=== PATIENT | male | born 1955 | race Two or more races ===

== ENCOUNTER 2024-07-21 07:53 | Outpatient (RCR) | payer MEDICARE, BC, SELFPAY ==
[2024-07-06 16:18] LABS: Basophils % (Auto) 0 % (0-2.5); Eosinophils # (Auto) 0.2 Thou/mm3 (0.0-0.5); Eosinophils % (Auto) 3 % (0-10); Hematocrit 38.4 % (41.0-53.0); Hemoglobin 12.9 g/dL (13.5-16.0); Immature Granulocytes % (Auto) 1 % (0-0); Immature Granulocytes Auto 0.04 Thou/mm3 (0.00-0.00); Lymphocytes # (Auto) 1.5 Thou/mm3 (1.0-4.8); Lymphocytes % (Auto) 23 % (10-50); Mean Corpuscular HGB Conc 33.6 g/dl (31.0-37.0); Mean Corpuscular Hemoglobin 30.4 pg (25.0-35.0); Mean Corpuscular Volume 91 fL (80-100); Monocytes # (Auto) 0.7 Thou/mm3 (0.0-0.8); Monocytes % (Auto) 11 % (0-12); Neutrophils # (Auto) 4.2 Thou/mm3 (1.8-7.7); Neutrophils % (Auto) 63 % (37-80); Nucleated Red Blood Cell % 0 /100 WBC (0); Platelet Count 174 Thou/mm3 (140-440); RDW Standard Deviation 42.5 fL (35.1-43.9); Red Blood Count 4.24 Miln/mm3 (4.50-5.90); White Blood Count 6.7 Thou/mm3 (3.8-10.6)
[2024-07-06 16:40] LABS: Alanine Aminotransferase 14 U/L (10-49); Albumin, Serum 4.7 gm/dL (3.4-4.8); Albumin/Globulin Ratio 1.6 (1.2-2.2); Alkaline Phosphatase 122 U/L (46-116); Anion Gap 7 (7-16); Aspartate Amino Transferase 16 U/L (0-34); BUN/Creatinine Ratio 28 Ratio (12-20); Bilirubin,Total 0.4 mg/dL (0.3-1.2); Blood Urea Nitrogen 22 mg/dL (9-23); Calcium 9.6 mg/dL (8.3-10.6); Calcium (Corrected) 9.6 mg/dL (8.5-10.1); Carbon Dioxide 28.6 mMol/L (20.0-31.0); Chloride 100 mMol/L (98-107); Creatinine (Component) 0.8 mg/dL (0.6-1.3); Glucose 95 mg/dL (74-106); Osmolality,Calculated 275 (275-295); Potassium 4.1 mMol/L (3.4-5.1); Sodium 136 mMol/L (136-145); Total Protein 7.7 gm/dL (5.7-8.2); eGFR > 60 See Note
[2024-07-06 16:44] LABS: Carcinoembryonic Antigen 1.3 ng/mL (0.0-5.0)
--- NOTE | 2024-07-11 22:59 | CTCFLWUP_ITS ---
Patient: KRAIG MAYO : 1955 Page 7 of 8 FOLLOW UP NOTE DATE OF SERVICE: 07/07/2024 NAME: KRAIG MAYO ACCOUNT: [id number] : 1955 AGE: 69 INTERVAL HISTORY: Patient doing well ONCOLOGY HISTORY: DIAGNOSIS: Malignant neoplasm of transverse colon [ICD10] C18.4 DATE OF DIAGNOSIS: 07/16/2023 STAGE/TNM: Stage IV colon cancer with liver mets s/p colectomy and metastatic colectomy of the liver lesions TREATMENT HISTORY: Care?Plan Start?Date Cycle Day Intent mFOLFOX-6?+?Bevacizumab?5?mg/kg 09/07/2023 1 14 Palliative HISTORY OF PRESENT ILLNESS: Kraig Mayo is a 69-year-old ENG speaking male with history of hypertension has the following oncology history. 07/14/2023: Hemoglobin 6.6, MCV 65, WBC 11.6, ANC 9.0, platelets 522,000. Mr. Mayo was having re stless leg syndrome as well as weakness and fatigue. 07/16/2023: Mr. Mayo had EGD and colonoscopy? 07/16/2023: CT scan of the abdomen and pelvis with IV contrast 08/13/2023: PET/CT scan? 07/17/2023: Mr. Mayo had exploratory laparotomy, right colectomy and eventual liver biopsy 09/07/2023: Mr. Mayo is started on modified FOLFOX 6 and bevacizumab. 09/10/2023: MRI of the abdomen with and without IV contrast 12/15/2023: Mr. Mayo received a dose of modified FOLFOX 6+ bevacizumab. 12/19/2023: PET/CT scan 02/24/2024: Mr. Mayo had fL cycle of modified FOLFOX 6 with bevacizumab. 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 Tobacco?Pack?per?Day:?0 MEDICATIONS: 1. iron - 100 mg/5 mL 2. magnesium - 200 mg 1 tab Daily 3. pravastatin - 40 mg 1 tab Daily 4. pregabalin - 50 mg 1 Capsule Twice a Day 5. PriLOSEC OTC - 20 mg 1 tab po q daily for 6 days 6. ramipriL - 10 mg 1 Capsule Daily 7. zinc - 30 mg 1 tab Daily Medications Last Reconciled by Rena Amado MA on 07/07/2024 ALLERGIES: No Known Allergies REVIEW OF SYSTEMS: A complete 14-point review of systems was performed and is negative except as noted in interval histo ry. PHYSICAL EXAMINATION: VITAL SIGNS: Temperature?98.2, B/P?124/82, Oxygen?Saturation?97% Weight?145?lbs (Change?since?07/06/24 :?-2.8?lbs) PAIN: 3 - Between mild and moderate pain ECOG Performance Status: 0 - Asymptomatic and fully active GENERAL APPEARANCE: Appears well, in no apparent distress, appropriately interactive. HEENT: Normocephalic, no temporal wasting, normal conjunctiva, no scleral icterus, normal hearing, li ps without lesions, neck normal range of motion. CARDIOVASCULAR: Not assessed. PULMONARY: Normal respiratory effort, no respiratory distress or use of accessory muscles, speaking i n full sentences, no tachypnea. EXTREMITIES: No pedal edema or cyanosis. SKIN: Normal skin appearance. NEUROLOGIC: Alert and oriented x4. PSHYCHIATRIC: Appropriate affect, mood normal, behavior normal, intact thought and speech. 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 Mayo had 12 cycles of modified FOLFOX 6+ bevacizumab on 02/24/2024. He has an appointment for repeat MRI scan on March 15, [address] at [place] scan (12/19/2023) showed significant decrease in the size of the hepatic metastatic disease. So far patient had 6 doses of modified FOLFOX 6 and bevacizumab. His energy levels have significantl y improved. Patient completed for hepatic metastasectomy at [place].. Will check for residua disease Ordered scans Will evaluate for residual disease Patient very reluctant to restart chemotherapt ORDERS: Cbc,cmp,cea,naterra and scans RETURN TO CLINIC: After scans amd naterra BILLING AND COMPLIANCE: I reviewed external records from providers outside my specialty as summarized above. I spent a total of 50 minutes on this patient?s care on the day of their visit excluding time spent related to any bi lled procedures. This time includes time spent with the patient as well as time spent documenting in the medical record, reviewing patients records and tests, obtaining history, placing orders, communi cating with other healthcare professionals, counseling the patient, family or caregiver, and/or care coordination for the diagnoses above. Electronically Signed by: Mark Pfeiffer MD T: 10:56 PM CC: Kellee? PCP: Luke Chan Referring: Luke Chan This document was completed utilizing speech recognition software. Grammatical errors, random word in sertions, pronoun errors, and incomplete sentences are an occasional consequence of this system due t o software limitations, ambient noise, and hardware issues. Any formal questions or concerns about th e content, text or information contained within the body of this dictation should be directly address ed to the provider for clarification.
== END 2024-07-22 23:59 | disposition home or self-care (01) ==
LOC: SCTC 07:53
PROVIDERS: PCP Family Medicine; Referring Provider Family Medicine; Visit Provider Internal Medicine Hematology & Oncology
DX: C18.4 Malignant neoplasm of transverse colon (principal); C78.7 Secondary malignant neoplasm of liver and intrahepatic bile duct; I10 Essential (primary) hypertension; Z90.49 Acquired absence of other specified parts of digestive tract
CPT/HCPCS: 36591; 80053; 82378; 85025; 99212; A4216; J1642; G0463

== ENCOUNTER → 2024-07-28 | Outpatient (CLI) | payer MEDICARE, BC, SELFPAY ==
--- NOTE | 2024-07-28 12:30 | XR_ITS ---
EXAMINATION: PET/CT FUSION SKULL TO THIGH EXAM DATE AND TIME: July 28, 2024 1307 hours Comparison December 17, 2023 INDICATIONS: Diagnosis malignant neoplasm colon post treatment restaging CTDI:vol (mGy) 3.82 DLP: (mGycm) 349 PROCEDURE: 15.75 mCi FDG was administered intravenously To allow for distribution and uptake of radiotracer, the patient was allowed to rest quietly in a shielded room. Imaging was performed on an integrated 16-slice PET/CT scanner, with scanning from the skull base to the mid thigh. Serum blood glucose at the time of the injection was measured 103 mg/dL. CT scanning was performed without oral or intravenous contrast material. FINDINGS: Head and Neck: There is no soumya hypermetabolism in the neck. The visualized portions of the brain are normal in appearance on CT. Chest: There is no soumya hypermetabolism in the chest. There are no pulmonary nodules. Abdomen and Pelvis: Multiple liver or surgical clips No hypermetabolic liver lesions noted Musculoskeletal: Marrow uptake is within normal range. IMPRESSION: No hypermetabolic liver lesions currently depicted
== END | disposition home or self-care (01) ==
PROVIDERS: Referring Provider Internal Medicine Hematology & Oncology; Visit Provider Internal Medicine Hematology & Oncology
DX: C18.4 Malignant neoplasm of transverse colon (principal)
CPT/HCPCS: 78815; A9552

== ENCOUNTER 2024-08-10 13:12 | Outpatient (RCR) | payer MEDICARE, BC, SELFPAY ==
--- NOTE | 2024-08-10 14:45 | CTCFLWUP_ITS ---
Patient: KRAIG MAYO : 1955 Page 2 of 2 FOLLOW UP NOTE DATE OF SERVICE: 08/10/2024 NAME: KRAIG MAYO ACCOUNT: [id number] : 1955 AGE: 69 INTERVAL HISTORY: Patient doing well here to follow-up on the PET scan ONCOLOGY HISTORY: DIAGNOSIS: Malignant neoplasm of transverse colon [ICD10] C18.4 DATE OF DIAGNOSIS: 07/16/2023 STAGE/TNM: Stage IV colon cancer with liver mets s/p colectomy and metastatic colectomy of the liver lesions TREATMENT HISTORY: Care?Plan Start?Date Cycle Day Intent mFOLFOX-6?+?Bevacizumab?5?mg/kg 09/07/2023 1 14 Palliative HISTORY OF PRESENT ILLNESS: Kraig Mayo is a 69-year-old ENG speaking male with history of hypertension has the following oncology history. 07/14/2023: Hemoglobin 6.6, MCV 65, WBC 11.6, ANC 9.0, platelets 522,000. Mr. Mayo was having restless leg syndrome as well as weakness and fatigue. 07/16/2023: Mr. Mayo had EGD and colonoscopy? 07/16/2023: CT scan of the abdomen and pelvis with IV contrast 08/13/2023: PET/CT scan? 07/17/2023: Mr. Mayo had exploratory laparotomy, right colectomy and eventual liver biopsy 09/07/2023: Mr. Mayo is started on modified FOLFOX 6 and bevacizumab. 09/10/2023: MRI of the abdomen with and without IV contrast 12/15/2023: Mr. Mayo received a dose of modified FOLFOX 6+ bevacizumab. 12/19/2023: PET/CT scan 02/24/2024: Mr. Mayo had fL cycle of modified FOLFOX 6 with bevacizumab. 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 Tobacco?Pack?per?Day:?0 MEDICATIONS: 1. iron - 100 mg/5 mL 2. magnesium - 200 mg 1 tab Daily 3. pravastatin - 40 mg 1 tab Daily 4. pregabalin - 50 mg 1 Capsule Twice a Day 5. PriLOSEC OTC - 20 mg 1 tab po q daily for 6 days 6. ramipriL - 10 mg 1 Capsule Daily 7. zinc - 30 mg 1 tab Daily Medications Last Reconciled by Jackie Lund MA on 08/10/2024 ALLERGIES: No Known Allergies REVIEW OF SYSTEMS: A complete 14-point review of systems was performed and is negative except as noted in interval history. PHYSICAL EXAMINATION: VITAL SIGNS: GENERAL APPEARANCE: Appears well, in no apparent distress, appropriately interactive. HEENT: Normocephalic, no temporal wasting, normal conjunctiva, no scleral icterus, normal hearing, lips without lesions, neck normal range of motion. CARDIOVASCULAR: Not assessed. PULMONARY: Normal respiratory effort, no respiratory distress or use of accessory muscles, speaking in full sentences, no tachypnea. EXTREMITIES: No pedal edema or cyanosis. SKIN: Normal skin appearance. NEUROLOGIC: Alert and oriented x4. PSHYCHIATRIC: Appropriate affect, mood normal, behavior normal, intact thought and speech. 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 Mayo had 12 cycles of modified FOLFOX 6+ bevacizumab on 02/24/2024. He has an appointment for repeat MRI scan on March 15, [address] at [place] scan (12/19/2023) showed significant decrease in the size of the hepatic metastatic disease. So far patient had 6 doses of modified FOLFOX 6 and bevacizumab. His energy levels have significantly improved. Patient completed for hepatic metastasectomy at [place].. PET CT scan negative for any cancer Will follow-up on [facility] CBC CMP CEA RETURN TO CLINIC: 6 months and telephone visit to review follow-up on Evita testing in 3 weeks BILLING AND COMPLIANCE: I reviewed external records from providers outside my specialty as summarized above. I spent a total of 50 minutes on this patient?s care on the day of their visit excluding time spent related to any billed procedures. This time includes time spent with the patient as well as time spent documenting in the medical record, reviewing patients records and tests, obtaining history, placing orders, communicating with other healthcare professionals, counseling the patient, family or caregiver, and/or care coordination for the diagnoses above. Electronically Signed by: Mark Pfeiffer MD T: 2:42 PM CC: GEORGIA Goodson PCP: Mark Pfeiffer Referring: Mark Pfeiffer This document was completed utilizing speech recognition software. Grammatical errors, random word insertions, pronoun errors, and incomplete sentences are an occasional consequence of this system due to software limitations, ambient noise, and hardware issues. Any formal questions or concerns about the content, text or information contained within the body of this dictation should be directly addressed to the provider for clarification.
== END 2024-08-19 23:59 | disposition home or self-care (01) ==
LOC: SCTC 13:12
PROVIDERS: PCP Family Medicine; Referring Provider Internal Medicine Hematology & Oncology; Visit Provider Internal Medicine Hematology & Oncology
DX: C18.4 Malignant neoplasm of transverse colon (principal); C78.7 Secondary malignant neoplasm of liver and intrahepatic bile duct; Z90.49 Acquired absence of other specified parts of digestive tract; I10 Essential (primary) hypertension
CPT/HCPCS: 99212; G0463

== ENCOUNTER 2024-08-17 06:45 | Day surgery (SDC) | payer MEDICARE, BC, SELFPAY ==
[2024-08-16 11:42] VITALS: BMI 23.5
[2024-08-17] VITALS (9 sets, daily range): BP systolic 120–167; BP diastolic 67–92; PULSE 55–63; RESP 12–18; TEMP 36.2–36.3; O2SAT 96–100; BMI 23.1
[2024-08-17] MEDS: SODIUM CHLORIDE 0.9% 500 ML 500 ML 100 ML IV (07:54)
[2024-08-17] MEDS: DiphenhydrAMINE INJ 50 MG/ML VIAL 25 MG IV (07:55)
[2024-08-17] MEDS: fentaNYL CIT INJ 50 mCg/ML AMP 2ML (ASD USE ONLY) IV (07:56)
[2024-08-17] MEDS: MIDAZOLAM INJ 1 MG/ML VIAL 2 ML (ASD USE ONLY) 2 MG IV (07:57)
--- NOTE | 2024-08-17 08:43 | SUR.PHASEII ---
0843 Pt more awake and alert. Denies pain or N/V. Abd remains soft. Pt frandy po fluids.
--- NOTE | 2024-08-17 09:06 | SUR.PHASEII ---
0902 Pt assessment unchanged. No complaints. Amb with steady gait. assisting with pt getting dressed. DC instructions given. Both state understanding. Pt meets dc criteria-to home.
== END 2024-08-17 09:02 | disposition home or self-care (01) ==
PROVIDERS: PCP Family Medicine; Referring Provider Surgery; Visit Provider Surgery
PROC: 0DBE8ZX Excision of Large Intestine, Via Natural or Artificial Opening Endoscopic, Diagnostic (ICD-10-PCS; CPT 45380; principal; 2024-08-17 07:30)
DX: Z12.11 Encounter for screening for malignant neoplasm of colon (principal); Z85.038 Personal history of other malignant neoplasm of large intestine; D12.3 Benign neoplasm of transverse colon; Z98.0 Intestinal bypass and anastomosis status; K64.1 Second degree hemorrhoids; K63.5 Polyp of colon; E78.00 Pure hypercholesterolemia, unspecified; I10 Essential (primary) hypertension
CPT/HCPCS: 45385; 45380; J1200; J2250; J3010; J7040

== ENCOUNTER 2024-09-21 10:30 | Outpatient (RCR) | payer MEDICARE, BC, SELFPAY ==
--- NOTE | 2024-10-10 16:56 | CTCFLWUP_ITS ---
Patient: KRAIG MAYO : 1955 Page 8 of 8 FOLLOW UP NOTE DATE OF SERVICE: 09/21/2024 NAME: KRAIG MAYO ACCOUNT: [id number] : 1955 AGE: 69 INTERVAL HISTORY: Patient doing well here to follow-up on the [facility] ONCOLOGY HISTORY: DIAGNOSIS: Malignant neoplasm of transverse colon [ICD10] C18.4 DATE OF DIAGNOSIS: 07/16/2023 STAGE/TNM: Stage IV colon cancer with liver mets s/p colectomy and metastatic colectomy of the liver lesions TREATMENT HISTORY: Care?Plan Start?Date Cycle Day Intent mFOLFOX-6?+?Bevacizumab?5?mg/kg 09/07/2023 1 14 Palliative HISTORY OF PRESENT ILLNESS: Kraig Mayo is a 69-year-old ENG speaking male with history of hypertension has the following oncology history. 07/14/2023: Hemoglobin 6.6, MCV 65, WBC 11.6, ANC 9.0, platelets 522,000. Mr. Mayo was having restless leg syndrome as well as weakness and fatigue. 07/16/2023: Mr. Mayo had EGD and colonoscopy? 07/16/2023: CT scan of the abdomen and pelvis with IV contrast 08/13/2023: PET/CT scan? 07/17/2023: Mr. Mayo had exploratory laparotomy, right colectomy and eventual liver biopsy 09/07/2023: Mr. Mayo is started on modified FOLFOX 6 and bevacizumab. 09/10/2023: MRI of the abdomen with and without IV contrast 12/15/2023: Mr. Mayo received a dose of modified FOLFOX 6+ bevacizumab. 12/19/2023: PET/CT scan 02/24/2024: Mr. Mayo had fL cycle of modified FOLFOX 6 with bevacizumab. 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 iron - 100 mg/5 mL 2. magnesium - 200 mg 1 tab Daily 3. pravastatin - 40 mg 1 tab Daily 4. pregabalin - 50 mg 1 Capsule Twice a Day 5. PriLOSEC OTC - 20 mg 1 tab po q daily for 6 days 6. ramipriL - 10 mg 1 Capsule Daily 7. zinc - 30 mg 1 tab Daily Medications Last Reconciled by Jackie Bennett MD on 09/21/2024 ALLERGIES: No Known Allergies REVIEW OF SYSTEMS: A complete 14-point review of systems was performed and is negative except as noted in interval history. PHYSICAL EXAMINATION: LABORATORY DATA: I have personally reviewed and interpreted each of the patient?s relevant lab tests, abnormal findings are below: Date 02/23/24 07/06/24 ??WHITE?BLOOD?COUNT?(Thou/mm3) 3.9 6.7 ??RED?BLOOD?COUNT?(Miln/mm3) 3.48?L 4.24?L ??HEMOGLOBIN?(gm/dl) 12.5?L 12.9?L ??HEMATOCRIT?(%) 35.2?L 38.4?L ??PLATELET?COUNT?(Thou/mm3) 128?L 174 ??NEUTROPHILS?%,?AUTO?(%) 59 63 ??LYMPH?%,?AUTO?(%) 27 23 ??NEUTROPHILS,?AUTO?(Thou/mm3) 2.3 4.2 ??GLUCOSE,RANDOM?(mg/dL) ? 95 ??BLOOD?UREA?NITROGEN?(mg/dL) ? 22 ??CREATININE?(mg/dL) ? 0.80 ??SODIUM?(mmol/L) ? 136 ??POTASSIUM?(mmol/L) ? 4.1 ??CHLORIDE?(mmol/L) ? 100 ??CrCl?(CandG)?(ml/min) ? 82.64 ??AST/SGOT?(Unit/L) ? 16 ??ALT/SGPT?(Unit/L) ? 14 ??ALKALINE?PHOSPHATASE?(Unit/L) ? 122?H ??BILIRUBIN,?TOTAL?(mg/dL) ? 0.4 ??PROTEIN?TOTAL?(gm/dl) ? 7.7 ??ALBUMIN,?SERUM?(gm/dl) ? 4.7 ??GLOBULIN?(gm/dl) ? 3.0 ??ALBUMIN/GLOBULIN?RATIO ? 1.6 ??CALCIUM,?SERUM?(mg/dL) ? 9.6 ??CALCIUM?SERUM?(CORRECTED)?(mg/dL) ? 9.6 ??CEA?(O*)?(ng/ml) ? 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 Mayo had 12 cycles of modified FOLFOX 6+ bevacizumab on 02/24/2024. He has an appointment for repeat MRI scan on March 15, [address] at [place] PET [address] scan (12/19/2023) showed significant decrease in the size of the hepatic metastatic disease. His energy levels have significantly improved. Patient completed for hepatic metastasectomy at [place].. PET CT scan 07/28/2024 negative for any cancer Naterrq testing is negative on 08/13/2024 CBC CMP CEA ORDERS: Order # Description [id number] Comprehensive Metabolic Panel - 12 + CBC with Auto Diff + CEA [id number] Comprehensive Metabolic Panel - 12 + CBC with Auto Diff + CEA RETURN TO CLINIC: 3 months BILLING AND COMPLIANCE: I reviewed external records from providers outside my specialty as summarized above. I spent a total of 50 minutes on this patient?s care on the day of their visit excluding time spent related to any billed procedures. This time includes time spent with the patient as well as time spent documenting in the medical record, reviewing patients records and tests, obtaining history, placing orders, communicating with other healthcare professionals, counseling the patient, family or caregiver, and/or care coordination for the diagnoses above. Electronically Signed by: Mark Pfeiffer MD T: 4:54 PM CC: Kellee? PCP: Luke Chan Referring: Luke Chan This document was completed utilizing speech recognition software. Grammatical errors, random word insertions, pronoun errors, and incomplete sentences are an occasional consequence of this system due to software limitations, ambient noise, and hardware issues. Any formal questions or concerns about the content, text or information contained within the body of this dictation should be directly addressed to the provider for clarification.
== END 2024-10-19 23:59 | disposition home or self-care (01) ==
LOC: SCTC 10:30
PROVIDERS: PCP Family Medicine; Referring Provider Family Medicine; Visit Provider Internal Medicine Hematology & Oncology
DX: C18.4 Malignant neoplasm of transverse colon (principal); C78.7 Secondary malignant neoplasm of liver and intrahepatic bile duct; Z90.49 Acquired absence of other specified parts of digestive tract; Z92.21 Personal history of antineoplastic chemotherapy
CPT/HCPCS: 99212; G0463

== ENCOUNTER 2024-11-07 09:25 | Outpatient (RCR) | payer MEDICARE, BC, SELFPAY | END 2024-11-19 23:59 | disposition home or self-care (01) | LOC: SCTC 09:25 | PROVIDERS: PCP Family Medicine; Referring Provider Family Medicine; Visit Provider Internal Medicine Hematology & Oncology | DX: Z45.2 Encounter for adjustment and management of vascular access device (principal); C18.4 Malignant neoplasm of transverse colon; C78.7 Secondary malignant neoplasm of liver and intrahepatic bile duct; Z90.49 Acquired absence of other specified parts of digestive tract | CPT/HCPCS: 96523; A4216; J1642 ==

== ENCOUNTER 2025-01-09 10:58 | Outpatient (RCR) | payer MEDICARE, BC, SELFPAY ==
[2025-01-06 09:57] LABS: Basophils # (Auto) 0.0 Thou/mm3 (0.0-0.2); Basophils % (Auto) 1 % (0-2.5); Eosinophils # (Auto) 0.1 Thou/mm3 (0.0-0.5); Eosinophils % (Auto) 2 % (0-10); Hematocrit 42.3 % (41.0-53.0); Hemoglobin 15.1 g/dL (13.5-16.0); Immature Granulocytes Auto 0.02 Thou/mm3 (0.00-0.00); Lymphocytes # (Auto) 1.0 Thou/mm3 (1.0-4.8); Lymphocytes % (Auto) 18 % (10-50); Mean Corpuscular HGB Conc 35.7 g/dl (31.0-37.0); Mean Corpuscular Hemoglobin 32.4 pg (25.0-35.0); Mean Corpuscular Volume 91 fL (80-100); Monocytes # (Auto) 0.5 Thou/mm3 (0.0-0.8); Monocytes % (Auto) 9 % (0-12); Neutrophils # (Auto) 3.7 Thou/mm3 (1.8-7.7); Neutrophils % (Auto) 69 % (37-80); Nucleated Red Blood Cell # 0.00 Thou/mm3 (0.00-0.00); Nucleated Red Blood Cell % 0 /100 WBC (0); Platelet Count 127 Thou/mm3 (140-440); RDW Standard Deviation 41.2 fL (35.1-43.9); Red Blood Count 4.66 Miln/mm3 (4.50-5.90); White Blood Count 5.3 Thou/mm3 (3.8-10.6)
[2025-01-06 10:15] LABS: Cardiac Risk Estimate 2.2 RATIO (4.0-6.7); Cholesterol 156 mg/dL (132-200); HDL Cholesterol 72 mg/dL (40-60); LDL Cholesterol,Calculated 71 mg/dL (0-130); Triglycerides 64 mg/dL (30-150)
[2025-01-06 10:18] LABS: Alanine Aminotransferase 13 U/L (10-49); Albumin, Serum 4.5 gm/dL (3.4-4.8); Albumin/Globulin Ratio 2.0 (1.2-2.2); Alkaline Phosphatase 86 U/L (46-116); Anion Gap 8 (7-16); Aspartate Amino Transferase 19 U/L (0-34); BUN/Creatinine Ratio 18 Ratio (12-20); Bilirubin,Total 0.8 mg/dL (0.3-1.2); Blood Urea Nitrogen 18 mg/dL (9-23); Calcium 9.6 mg/dL (8.3-10.6); Calcium (Corrected) 9.6 mg/dL (8.5-10.1); Carbon Dioxide 25.3 mMol/L (20.0-31.0); Chloride 107 mMol/L (98-107); Creatinine (Component) 1.0 mg/dL (0.6-1.3); Globulin 2.3 gm/dL (2.3-3.5); Glucose 106 mg/dL (74-106); Osmolality,Calculated 281 (275-295); Potassium 4.3 mMol/L (3.4-5.1); Sodium 140 mMol/L (136-145); Total Protein 6.8 gm/dL (5.7-8.2); eGFR > 60 See Note
[2025-01-06 10:22] LABS: Carcinoembryonic Antigen 1.2 ng/mL (0.0-5.0)
--- NOTE | 2025-01-15 20:26 | CTCFLWUP_ITS ---
Patient: KRAIG MAYO : 1955 Page 7 of 8 FOLLOW UP NOTE DATE OF SERVICE: 01/09/2025 NAME: KRAIG MAYO ACCOUNT: [id number] : 1955 AGE: 69 INTERVAL HISTORY: Patient doing well here to follow-up on the naterra.naterra have progressed . 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 07/14/2023: Hemoglobin 6.6, MCV 65, WBC 11.6, ANC 9.0, platelets 522,000. Mr. Mayo was having restless leg syndrome as well as weakness and fatigue. 07/16/2023: Mr. Mayo had EGD and colonoscopy? 07/16/2023: CT scan of the abdomen and pelvis with IV contrast 08/13/2023: PET/CT scan? 07/17/2023: Mr. Mayo had exploratory laparotomy, right colectomy and eventual liver biopsy 09/07/2023: Mr. Mayo is started on modified FOLFOX 6 and bevacizumab. 09/10/2023: MRI of the abdomen with and without IV contrast 12/15/2023: Mr. Mayo received a dose of modified FOLFOX 6+ bevacizumab. 12/19/2023: PET/CT scan 02/24/2024: Mr. Mayo had fL cycle of modified FOLFOX 6 with bevacizumab. 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 Tobacco?Pack?per?Day:?0 MEDICATIONS: 1. ferrous sulfate - 324 mg 1 tab Daily 2. pravastatin - 40 mg 1 tab Daily 3. pregabalin - 50 mg 1 Capsule Twice a Day 4. ramipriL - 10 mg 1 Capsule Daily Medications Last Reconciled by Jackie Lund MA on 01/09/2025 ALLERGIES: No Known Allergies REVIEW OF SYSTEMS: A complete 14-point review of systems was performed and is negative except as noted in interval history. PHYSICAL EXAMINATION: VITAL SIGNS: Temperature?98.8, B/P?124/74, Oxygen?Saturation?96% Weight?158?lbs (Change?since?01/06/25:?-4.4?lbs) PAIN: 0 - No pain ECOG Performance Status: 0 - Asymptomatic and fully active GENERAL APPEARANCE: Appears well, in no apparent distress, appropriately interactive. HEENT: Normocephalic, no temporal wasting, normal conjunctiva, no scleral icterus, normal hearing, lips without lesions, neck normal range of motion. CARDIOVASCULAR: Not assessed. PULMONARY: Normal respiratory effort, no respiratory distress or use of accessory muscles, speaking in full sentences, no tachypnea. EXTREMITIES: No pedal edema or cyanosis. SKIN: Normal skin appearance. NEUROLOGIC: Alert and oriented x4. PSHYCHIATRIC: Appropriate affect, mood normal, behavior normal, intact thought and speech. LABORATORY DATA: I have personally reviewed and interpreted each of the patient?s relevant lab tests, abnormal findings are below: Date 07/06/24 01/06/25 ??WHITE?BLOOD?COUNT?(Thou/mm3) 6.7 5.3 ??RED?BLOOD?COUNT?(Miln/mm3) 4.24?L 4.66 ??HEMOGLOBIN?(gm/dl) 12.9?L 15.1 ??HEMATOCRIT?(%) 38.4?L 42.3 ??PLATELET?COUNT?(Thou/mm3) 174 127?L ??NEUTROPHILS?%,?AUTO?(%) 63 69 ??LYMPH?%,?AUTO?(%) 23 18 ??NEUTROPHILS,?AUTO?(Thou/mm3) 4.2 3.7 ??GLUCOSE,RANDOM?(mg/dL) ? 106 ??BLOOD?UREA?NITROGEN?(mg/dL) ? 18 ??CREATININE?(mg/dL) ? 1.00 ??SODIUM?(mmol/L) ? 140 ??POTASSIUM?(mmol/L) ? 4.3 ??CHLORIDE?(mmol/L) ? 107 ??CrCl?(CandG)?(ml/min) ? 72.64 ??AST/SGOT?(Unit/L) ? 19 ??ALT/SGPT?(Unit/L) ? 13 ??ALKALINE?PHOSPHATASE?(Unit/L) ? 86 ??BILIRUBIN,?TOTAL?(mg/dL) ? 0.8 ??PROTEIN?TOTAL?(gm/dl) ? 6.8 ??ALBUMIN,?SERUM?(gm/dl) ? 4.5 ??GLOBULIN?(gm/dl) ? 2.3 ??ALBUMIN/GLOBULIN?RATIO ? 2.0 ??CALCIUM,?SERUM?(mg/dL) ? 9.6 ??CALCIUM?SERUM?(CORRECTED)?(mg/dL) ? 9.6 ??CEA?(O*)?(ng/ml) ? 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 Mayo had 12 cycles of modified FOLFOX 6+ bevacizumab on 02/24/2024. He has an appointment for repeat MRI scan on March 15, [address] at [place] scan (12/19/2023) showed significant decrease in the size of the hepatic metastatic disease. His energy levels have significantly improved. Patient completed for hepatic metastasectomy at [place].. PET CT scan 07/28/2024 negative for any cancer Naterra testing is negative on 08/13/2024 CBC CMP CEA 10/13/2024 naterra is positive Will scan to confirm progression Will need restart of chemotheraoy folfiri with clarence ORDERS: Order # Description [id number] CT Scan + Abdomen and Pelvis + Chest + With W/O Contrast [id number] Comprehensive Metabolic Panel - 12 + CBC with Auto Diff + CEA RETURN TO CLINIC: I reviewed the diagnosis, prognosis, and recommended treatment/procedure options with the patient (and/or their legal patient admitting representative), including the potential benefits, risks, side effects and alternative therapies. We also discussed the option of no treatment and the possibility of clinical trial participation, if applicable. All questions were addressed, and they demonstrated understanding. They provided informed consent to proceed with the proposed plan of care. BILLING AND COMPLIANCE: I reviewed external records from providers outside my specialty as summarized above. I spent a total of 50 minutes on this patient?s care on the day of their visit excluding time spent related to any billed procedures. This time includes time spent with the patient as well as time spent documenting in the medical record, reviewing patients records and tests, obtaining history, placing orders, communicating with other healthcare professionals, counseling the patient, family or caregiver, and/or care coordination for the diagnoses above. Electronically Signed by: {Object.Sanct_ID*PnP.NameFL@M}, {Object.Sanct_ID*PnP.Suffix@U} D: {Object.Sanct_Date} T: {Object.Sanct_Time} CC: Conor?Evon,? PCP: Luke Chan Referring: Mark Pfeiffer This document was completed utilizing speech recognition software. Grammatical errors, random word insertions, pronoun errors, and incomplete sentences are an occasional consequence of this system due to software limitations, ambient noise, and hardware issues. Any formal questions or concerns about the content, text or information contained within the body of this dictation should be directly addressed to the provider for clarification.
== END 2025-01-19 23:59 | disposition home or self-care (01) ==
LOC: SCTC 10:58
PROVIDERS: PCP Family Medicine; Referring Provider Internal Medicine Hematology & Oncology; Visit Provider Internal Medicine Hematology & Oncology
DX: C18.4 Malignant neoplasm of transverse colon (principal); C78.7 Secondary malignant neoplasm of liver and intrahepatic bile duct; Z90.49 Acquired absence of other specified parts of digestive tract; Z92.21 Personal history of antineoplastic chemotherapy
CPT/HCPCS: 36591; 80053; 80061; 82378; 85025; 99212; A4216; J1642; G0463

== ENCOUNTER → 2025-02-02 | Outpatient (CLI) | payer MEDICARE, BC, SELFPAY ==
--- NOTE | 2025-02-02 10:30 | XR_ITS ---
Examination: CT chest with intravenous contrast CT abdomen with intravenous contrast CT pelvis with intravenous contrast CT chest without intravenous contrast CT abdomen without intravenous contrast CT pelvis without intravenous contrast 2-D coronal and sagittal reconstructions Time of exam: February 02, 2025 1039 hours, comparison PET/CT scan July 28, 2024, MRI pelvis MRI abdomen January 23, 2024 INDICATIONS: Diagnosis malignant neoplasm transverse colon, metastases to the liver diagnosis June 2023, post surgery and chemotherapy restaging CTDI: vol (mGy) : 23.5 DLP: (mGycm): 1176 Technique: Multiple axial images of the chest, abdomen and pelvis with intravenous contrast, 3.0 mm slice thickness. Images obtained post intravenous injection Isovue 370 60 cc. 2-D sagittal and coronal reconstructions. Low dose protocols were performed. One or more of the following dose reduction techniques were used; automated exposure control, adjustment of the mA and/or KV according to patient size, use of iterative reconstruction technique. Findings: No thoracic aortic aneurysm dilatation No pulmonary artery filling defects No paratracheal tracheobronchial or bronchopulmonary adenopathy. No pneumonia, pulmonary edema, pleural disease or pulmonary mass lesions Multiple liver surgical clips 12 mm solid appearing lesion medial right lobe of the liver image 147 No pancreatic mass Spleen is not enlarged Aorta normal size 6 mm left lateral periaortic lymph node 7 mm left external iliac lymph node Urinary bladder intact Moderate osteopenia IMPRESSION: No interval mediastinal lymphadenopathy No interval pneumonia, pulmonary edema, pleural disease or pulmonary mass lesions. Interval 12 mm solid appearing lesion medial right lobe of the liver, recommend repeat MRI abdomen liver follow-up pre and postcontrast 6 mm left lateral periaortic lymph node 7 mm left external iliac lymph node
== END | disposition home or self-care (01) ==
LOC: CCTX 10:00
PROVIDERS: Referring Provider Internal Medicine Hematology & Oncology; Visit Provider Internal Medicine Hematology & Oncology
DX: K76.9 Liver disease, unspecified (principal); C18.4 Malignant neoplasm of transverse colon
CPT/HCPCS: 71270; 74178; A4649; Q9967

== ENCOUNTER 2025-02-15 14:54 | Outpatient (RCR) | payer MEDICARE, BC, SELFPAY ==
--- NOTE | 2025-02-20 22:28 | CTCFLWUP_ITS ---
Patient: KRAIG MAYO : 1955 Page 7 of 8 FOLLOW UP NOTE DATE OF SERVICE: 02/15/2025 NAME: KRAIG MAYO ACCOUNT: [id number] : 1955 AGE: 69 INTERVAL HISTORY: Patient doing well here to follow-up on the naterra.naterra have progressed . 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 07/14/2023: Hemoglobin 6.6, MCV 65, WBC 11.6, ANC 9.0, platelets 522,000. Mr. Mayo was having restless leg syndrome as well as weakness and fatigue. 07/16/2023: Mr. Mayo had EGD and colonoscopy? 07/16/2023: CT scan of the abdomen and pelvis with IV contrast 08/13/2023: PET/CT scan? 07/17/2023: Mr. Mayo had exploratory laparotomy, right colectomy and eventual liver biopsy 09/07/2023: Mr. Mayo is started on modified FOLFOX 6 and bevacizumab. 09/10/2023: MRI of the abdomen with and without IV contrast 12/15/2023: Mr. Mayo received a dose of modified FOLFOX 6+ bevacizumab. 12/19/2023: PET/CT scan 02/24/2024: Mr. Mayo had fL cycle of modified FOLFOX 6 with bevacizumab. 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 Tobacco?Pack?per?Day:?0 MEDICATIONS: 1. ferrous sulfate - 324 mg 1 tab Daily 2. pravastatin - 40 mg 1 tab Daily 3. pregabalin - 50 mg 1 Capsule Twice a Day 4. ramipriL - 10 mg 1 Capsule Daily Medications Last Reconciled by Jackie Bennett MD on 02/15/2025 ALLERGIES: No Known Allergies REVIEW OF SYSTEMS: A complete 14-point review of systems was performed and is negative except as noted in interval history. PHYSICAL EXAMINATION: VITAL SIGNS: Temperature?97.1, B/P?121/66, Oxygen?Saturation?97% Weight?160?lbs PAIN: 0 - No pain ECOG Performance Status: 0 - Asymptomatic and fully active GENERAL APPEARANCE: Appears well, in no apparent distress, appropriately interactive. HEENT: Normocephalic, no temporal wasting, normal conjunctiva, no scleral icterus, normal hearing, lips without lesions, neck normal range of motion. CARDIOVASCULAR: Not assessed. PULMONARY: Normal respiratory effort, no respiratory distress or use of accessory muscles, speaking in full sentences, no tachypnea. EXTREMITIES: No pedal edema or cyanosis. SKIN: Normal skin appearance. NEUROLOGIC: Alert and oriented x4. PSHYCHIATRIC: Appropriate affect, mood normal, behavior normal, intact thought and speech. LABORATORY DATA: I have personally reviewed and interpreted each of the patient?s relevant lab tests, abnormal findings are below: Date 07/06/24 01/06/25 ??WHITE?BLOOD?COUNT?(Thou/mm3) 6.7 5.3 ??RED?BLOOD?COUNT?(Miln/mm3) 4.24?L 4.66 ??HEMOGLOBIN?(gm/dl) 12.9?L 15.1 ??HEMATOCRIT?(%) 38.4?L 42.3 ??PLATELET?COUNT?(Thou/mm3) 174 127?L ??NEUTROPHILS?%,?AUTO?(%) 63 69 ??LYMPH?%,?AUTO?(%) 23 18 ??NEUTROPHILS,?AUTO?(Thou/mm3) 4.2 3.7 ??GLUCOSE,RANDOM?(mg/dL) ? 106 ??BLOOD?UREA?NITROGEN?(mg/dL) ? 18 ??CREATININE?(mg/dL) ? 1.00 ??SODIUM?(mmol/L) ? 140 ??POTASSIUM?(mmol/L) ? 4.3 ??CHLORIDE?(mmol/L) ? 107 ??CrCl?(CandG)?(ml/min) ? 72.64 ??AST/SGOT?(Unit/L) ? 19 ??ALT/SGPT?(Unit/L) ? 13 ??ALKALINE?PHOSPHATASE?(Unit/L) ? 86 ??BILIRUBIN,?TOTAL?(mg/dL) ? 0.8 ??PROTEIN?TOTAL?(gm/dl) ? 6.8 ??ALBUMIN,?SERUM?(gm/dl) ? 4.5 ??GLOBULIN?(gm/dl) ? 2.3 ??ALBUMIN/GLOBULIN?RATIO ? 2.0 ??CALCIUM,?SERUM?(mg/dL) ? 9.6 ??CALCIUM?SERUM?(CORRECTED)?(mg/dL) ? 9.6 ??CEA?(O*)?(ng/ml) ? 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 Mayo had 12 cycles of modified FOLFOX 6+ bevacizumab on 02/24/2024. He has an appointment for repeat MRI scan on March 15, [address] at [place] scan (12/19/2023) showed significant decrease in the size of the hepatic metastatic disease. His energy levels have significantly improved. Patient completed for hepatic metastasectomy at [place].. PET CT scan 07/28/2024 negative for any cancer Naterra testing is negative on 08/13/2024 CBC CMP CEA 10/13/2024 naterra is positive 01/17/2025 materialized further positive at 4.82 CT scan chest abdomen pelvis done showed interval 12 mm solid-appearing lesion in the right lobe of liver and 6 mm left lateral periaortic lymph node and 7 mm left external iliac lymph node Patient have progression of cancer start chemotherapy with FOLFIRI plus bevacizumab Patient already have port catheter Next scan in 2 months after starting treatment ORDERS: Order # Description [id number] Comprehensive Metabolic Panel - 12 + CBC with Auto Diff [id number] CBC + Comprehensive Metabolic Panel + CEA [id number] Lab Appointment [id number] Infusion [id number] Scan + Chest + Abdomen and Pelvis + With W/O Contrast RETURN TO CLINIC: I reviewed the diagnosis, prognosis, and recommended treatment/procedure options with the patient (and/or their legal provider relations representative), including the potential benefits, risks, side effects and alternative therapies. We also discussed the option of no treatment and the possibility of clinical trial participation, if applicable. All questions were addressed, and they demonstrated understanding. They provided informed consent to proceed with the proposed plan of care. BILLING AND COMPLIANCE: I reviewed external records from providers outside my specialty as summarized above. I spent a total of 50 minutes on this patient?s care on the day of their visit excluding time spent related to any billed procedures. This time includes time spent with the patient as well as time spent documenting in the medical record, reviewing patients records and tests, obtaining history, placing orders, communicating with other healthcare professionals, counseling the patient, family or caregiver, and/or care coordination for the diagnoses above. Electronically Signed by: {Object.Sanct_ID*PnP.NameFL@M}, {Object.Sanct_ID*PnP.Suffix@U} D: {Object.Sanct_Date} T: {Object.Sanct_Time} CC: Conor?Evon? PCP: Mark Pfeiffer Referring: Mark Pfeiffer This document was completed utilizing speech recognition software. Grammatical errors, random word insertions, pronoun errors, and incomplete sentences are an occasional consequence of this system due to software limitations, ambient noise, and hardware issues. Any formal questions or concerns about the content, text or information contained within the body of this dictation should be directly addressed to the provider for clarification.
== END 2025-02-19 23:59 | disposition home or self-care (01) ==
LOC: SCTC 14:54
PROVIDERS: PCP Family Medicine; Referring Provider Internal Medicine Hematology & Oncology; Visit Provider Internal Medicine Hematology & Oncology
DX: C18.4 Malignant neoplasm of transverse colon (principal); C78.7 Secondary malignant neoplasm of liver and intrahepatic bile duct; Z90.49 Acquired absence of other specified parts of digestive tract; Z92.21 Personal history of antineoplastic chemotherapy
CPT/HCPCS: 99212; G0463

== ENCOUNTER 2025-03-14 06:57 | Outpatient (RCR) | payer MEDICARE, BC, SELFPAY ==
[2025-03-13 10:12] LABS: Basophils # (Auto) 0.1 Thou/mm3 (0.0-0.2); Basophils % (Auto) 1 % (0-2.5); Eosinophils # (Auto) 0.1 Thou/mm3 (0.0-0.5); Eosinophils % (Auto) 2 % (0-10); Hematocrit 42.2 % (41.0-53.0); Hemoglobin 14.5 g/dL (13.5-16.0); Immature Granulocytes Auto 0.02 Thou/mm3 (0.00-0.00); Lymphocytes # (Auto) 1.1 Thou/mm3 (1.0-4.8); Lymphocytes % (Auto) 20 % (10-50); Mean Corpuscular HGB Conc 34.4 g/dl (31.0-37.0); Mean Corpuscular Hemoglobin 32.3 pg (25.0-35.0); Mean Corpuscular Volume 94 fL (80-100); Monocytes # (Auto) 0.5 Thou/mm3 (0.0-0.8); Monocytes % (Auto) 9 % (0-12); Neutrophils # (Auto) 3.8 Thou/mm3 (1.8-7.7); Neutrophils % (Auto) 68 % (37-80); Nucleated Red Blood Cell # 0.00 Thou/mm3 (0.00-0.00); Nucleated Red Blood Cell % 0 /100 WBC (0); Platelet Count 129 Thou/mm3 (140-440); RDW Standard Deviation 40.7 fL (35.1-43.9); Red Blood Count 4.49 Miln/mm3 (4.50-5.90); White Blood Count 5.6 Thou/mm3 (3.8-10.6)
[2025-03-13 10:27] LABS: Collection Type, Urine Voided
[2025-03-13 10:32] LABS: Alanine Aminotransferase 12 U/L (10-49); Albumin, Serum 4.2 gm/dL (3.4-4.8); Albumin/Globulin Ratio 1.8 (1.2-2.2); Alkaline Phosphatase 87 U/L (46-116); Anion Gap 7 (7-16); Aspartate Amino Transferase 17 U/L (0-34); BUN/Creatinine Ratio 18 Ratio (12-20); Bilirubin,Total 0.5 mg/dL (0.3-1.2); Blood Urea Nitrogen 16 mg/dL (9-23); Calcium 9.2 mg/dL (8.3-10.6); Calcium (Corrected) 9.2 mg/dL (8.5-10.1); Carbon Dioxide 27.0 mMol/L (20.0-31.0); Chloride 108 mMol/L (98-107); Creatinine (Component) 0.9 mg/dL (0.6-1.3); Globulin 2.4 gm/dL (2.3-3.5); Glucose 125 mg/dL (74-106); Osmolality,Calculated 285 (275-295); Potassium 3.9 mMol/L (3.4-5.1); Sodium 142 mMol/L (136-145); Total Protein 6.6 gm/dL (5.7-8.2); eGFR > 60 See Note
[2025-03-13 10:34] LABS: Carcinoembryonic Antigen 1.7 ng/mL (0.0-5.0)
[2025-03-13 10:54] LABS: Bilirubin,Urine Negative (Negative); Blood,Urine 2+ (Negative); Color,Urine Lt Yellow (Lt Yel-Yel); Glucose, Urine Trace (Negative); Ketones,Urine Trace (Negative); Leukocyte Esterase,Urine 1+ (Negative); Nitrite,Urine Positive (Negative); PH,Urine 6.0 (5.0-7.0); Protein,Urine Negative (Neg - Trace); Specific Gravity,Urine 1.025 (1.001-1.035); Urobilinogen,Urine 0.2 mg/dL (0.0-1.0)
[2025-03-13 11:23] LABS: Bacteria,Urine 3+; RBC,Urine 9 /hpf (0-3); Squamous Epithelial Cell,Urine < 1 /hpf (0-5); WBC,Urine 41 /hpf (0-5)
[2025-03-13 11:27] LABS: Clarity,Urine Hazy (Clear/Hazy)
== END 2025-03-21 23:59 | disposition home or self-care (01) ==
LOC: SCTC 06:57
PROVIDERS: PCP Family Medicine; Referring Provider Family Medicine; Visit Provider Internal Medicine Hematology & Oncology
DX: Z51.11 Encounter for antineoplastic chemotherapy (principal); C18.4 Malignant neoplasm of transverse colon; C78.7 Secondary malignant neoplasm of liver and intrahepatic bile duct; Z90.49 Acquired absence of other specified parts of digestive tract
CPT/HCPCS: 36591; 80053; 81001; 82378; 85025; 96413; 96415; A4216; J1642; J3490; J7040; Q5126

== ENCOUNTER 2025-04-17 09:53 | Outpatient (RCR) | payer MEDICARE, BC, SELFPAY ==
[2025-04-03 08:13] LABS: Collection Type, Urine Voided; Squamous Epithelial Cell,Urine 0 /hpf (0-5)
[2025-04-03 08:22] LABS: Basophils # (Auto) 0.1 Thou/mm3 (0.0-0.2); Basophils % (Auto) 1 % (0-2.5); Eosinophils # (Auto) 0.2 Thou/mm3 (0.0-0.5); Eosinophils % (Auto) 2 % (0-10); Hematocrit 42.4 % (41.0-53.0); Hemoglobin 14.8 g/dL (13.5-16.0); Immature Granulocytes Auto 0.03 Thou/mm3 (0.00-0.00); Lymphocytes # (Auto) 1.5 Thou/mm3 (1.0-4.8); Lymphocytes % (Auto) 18 % (10-50); Mean Corpuscular HGB Conc 34.9 g/dl (31.0-37.0); Mean Corpuscular Hemoglobin 32.6 pg (25.0-35.0); Mean Corpuscular Volume 93 fL (80-100); Monocytes # (Auto) 0.7 Thou/mm3 (0.0-0.8); Monocytes % (Auto) 8 % (0-12); Neutrophils # (Auto) 5.8 Thou/mm3 (1.8-7.7); Neutrophils % (Auto) 70 % (37-80); Nucleated Red Blood Cell # 0.00 Thou/mm3 (0.00-0.00); Nucleated Red Blood Cell % 0 /100 WBC (0); Platelet Count 143 Thou/mm3 (140-440); RDW Standard Deviation 40.7 fL (35.1-43.9); Red Blood Count 4.54 Miln/mm3 (4.50-5.90); White Blood Count 8.3 Thou/mm3 (3.8-10.6)
[2025-04-03 08:38] LABS: Alanine Aminotransferase 16 U/L (10-49); Albumin, Serum 4.3 gm/dL (3.4-4.8); Albumin/Globulin Ratio 2.0 (1.2-2.2); Alkaline Phosphatase 86 U/L (46-116); Anion Gap 8 (7-16); Aspartate Amino Transferase 20 U/L (0-34); BUN/Creatinine Ratio 20 Ratio (12-20); Bilirubin,Total 0.6 mg/dL (0.3-1.2); Blood Urea Nitrogen 18 mg/dL (9-23); Calcium 9.2 mg/dL (8.3-10.6); Calcium (Corrected) 9.2 mg/dL (8.5-10.1); Carbon Dioxide 26.0 mMol/L (20.0-31.0); Chloride 106 mMol/L (98-107); Creatinine (Component) 0.9 mg/dL (0.6-1.3); Globulin 2.2 gm/dL (2.3-3.5); Glucose 90 mg/dL (74-106); Osmolality,Calculated 281 (275-295); Potassium 4.3 mMol/L (3.4-5.1); Sodium 140 mMol/L (136-145); Total Protein 6.5 gm/dL (5.7-8.2); eGFR > 60 See Note
[2025-04-03 08:39] LABS: Carcinoembryonic Antigen 1.7 ng/mL (0.0-5.0)
[2025-04-03 08:49] LABS: Bacteria,Urine 3+; Bilirubin,Urine Negative (Negative); Blood,Urine Negative (Negative); Color,Urine Lt-Yellow (Lt Yel-Yel); Glucose, Urine Negative (Negative); Ketones,Urine Negative (Negative); Leukocyte Esterase,Urine Positive (Negative); Nitrite,Urine Positive (Negative); PH,Urine 5.5 (5.0-7.0); Protein,Urine Negative (Neg - Trace); RBC,Urine 1 /hpf (0-3); Specific Gravity,Urine 1.020 (1.001-1.035); Urobilinogen,Urine Negative mg/dL (0.0-1.0); WBC,Urine 56 /hpf (0-5)
[2025-04-03 08:52] LABS: Clarity,Urine Hazy (Clear/Hazy)
--- NOTE | 2025-04-18 21:14 | CTCFLWUP_ITS ---
Patient: KRAIG MAYO : 1955 Page 7 of 10 FOLLOW UP NOTE DATE OF SERVICE: 04/17/2025 NAME: KRAIG MAYO ACCOUNT: [id number] : 1955 AGE: 69 INTERVAL HISTORY: Patient is on MARIBEL with FOLFIRI . patient is doing well. His cea is now normalized and naterra is negative. No adverse effect from medicine . ONCOLOGY HISTORY: DIAGNOSIS: Malignant neoplasm of transverse colon [ICD10] C18.4 DATE OF DIAGNOSIS: 07/16/2023 STAGE/TNM: Stage IV colon cancer with liver mets s/p colectomy and metastatic colectomy of the liver lesions TREATMENT HISTORY: Care?Plan Start?Date Cycle Day Intent mFOLFOX-6?+?Bevacizumab?5?mg/kg 09/07/2023 1 14 Palliative FOLFIRI?+?Bevacizumab?5mg/kg 02/20/2025 1 14 Palliative capecitabine?and?avastin 03/14/2025 1 21 Palliative HISTORY OF PRESENT ILLNESS: Kraig Mayo is a 69-year-old ENG speaking male with history of hypertension has the following oncology history. 07/14/2023: Hemoglobin 6.6, MCV 65, WBC 11.6, ANC 9.0, platelets 522,000. Mr. Mayo was having restless leg syndrome as well as weakness and fatigue. 07/16/2023: Mr. Mayo had EGD and colonoscopy? 07/16/2023: CT scan of the abdomen and pelvis with IV contrast 08/13/2023: PET/CT scan? 07/17/2023: Mr. Mayo had exploratory laparotomy, right colectomy and eventual liver biopsy 09/07/2023: Mr. Mayo is started on modified FOLFOX 6 and bevacizumab. 09/10/2023: MRI of the abdomen with and without IV contrast 12/15/2023: Mr. Mayo received a dose of modified FOLFOX 6+ bevacizumab. 12/19/2023: PET/CT scan 02/24/2024: Mr. Mayo had fL cycle of modified FOLFOX 6 with bevacizumab. 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 Tobacco?Pack?per?Day:?0 MEDICATIONS: 1. capecitabine - 150 mg 2 tab twice a day 2. capecitabine - 500 mg 3 tab twice a day 3. Compazine - 10 mg 10 mg three times a day prn nausea 4. ferrous sulfate - 324 mg 1 tab Daily 5. pravastatin - 40 mg 1 tab Daily 6. pregabalin - 50 mg 1 Capsule Twice a Day 7. ramipriL - 10 mg 1 Capsule Daily 8. Zofran - 8 mg 8 mg three times a day prn nausea Medications Last Reconciled by Jackie Bennett MD on 04/17/2025 ALLERGIES: No Known Allergies REVIEW OF SYSTEMS: A complete 14-point review of systems was performed and is negative except as noted in interval history. PHYSICAL EXAMINATION: VITAL SIGNS: Temperature?97, B/P?121/78, Oxygen?Saturation?98% Weight?160?lbs (Change?since?04/04/25:?-2.8?lbs) PAIN: 0 - No pain ECOG Performance Status: 0 - Asymptomatic and fully active GENERAL APPEARANCE: Appears well, in no apparent distress, appropriately interactive. HEENT: Normocephalic, no temporal wasting, normal conjunctiva, no scleral icterus, normal hearing, lips without lesions, neck normal range of motion. CARDIOVASCULAR: Not assessed. PULMONARY: Normal respiratory effort, no respiratory distress or use of accessory muscles, speaking in full sentences, no tachypnea. EXTREMITIES: No pedal edema or cyanosis. SKIN: Normal skin appearance. NEUROLOGIC: Alert and oriented x4. PSHYCHIATRIC: Appropriate affect, mood normal, behavior normal, intact thought and speech. LABORATORY DATA: I have personally reviewed and interpreted each of the patient?s relevant lab tests, abnormal findings are below: Date 03/13/25 04/03/25 ??WHITE?BLOOD?COUNT?(Thou/mm3) ? 8.3 ??RED?BLOOD?COUNT?(Miln/mm3) ? 4.54 ??HEMOGLOBIN?(gm/dl) ? 14.8 ??HEMATOCRIT?(%) ? 42.4 ??PLATELET?COUNT?(Thou/mm3) ? 143 ??NEUTROPHILS?%,?AUTO?(%) ? 70 ??LYMPH?%,?AUTO?(%) ? 18 ??NEUTROPHILS,?AUTO?(Thou/mm3) ? 5.8 ??GLUCOSE,RANDOM?(mg/dL) 125?H 90 ??BLOOD?UREA?NITROGEN?(mg/dL) 16 18 ??CREATININE?(mg/dL) 0.90 0.90 ??SODIUM?(mmol/L) 142 140 ??POTASSIUM?(mmol/L) 3.9 4.3 ??CHLORIDE?(mmol/L) 108?H 106 ??CrCl?(CandG)?(ml/min) 81.31 81.41 ??AST/SGOT?(Unit/L) 17 20 ??ALT/SGPT?(Unit/L) 12 16 ??ALKALINE?PHOSPHATASE?(Unit/L) 87 86 ??BILIRUBIN,?TOTAL?(mg/dL) 0.5 0.6 ??PROTEIN?TOTAL?(gm/dl) 6.6 6.5 ??ALBUMIN,?SERUM?(gm/dl) 4.2 4.3 ??GLOBULIN?(gm/dl) 2.4 2.2?L ??ALBUMIN/GLOBULIN?RATIO 1.8 2.0 ??CALCIUM,?SERUM?(mg/dL) 9.2 9.2 ??CALCIUM?SERUM?(CORRECTED)?(mg/dL) 9.2 9.2 ??CEA?(O*)?(ng/ml) ? 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 Mayo had 12 cycles of modified FOLFOX 6+ bevacizumab on 02/24/2024. He has an appointment for repeat MRI scan on March 15, [address] [place] scan (12/19/2023) showed significant decrease in the size of the hepatic metastatic disease. His energy levels have significantly improved. Kras is wild type Patient completed for hepatic metastasectomy at [place].. PET CT scan 07/28/2024 negative for any cancer Naterra testing is negative on 08/13/2024 CBC CMP CEA 10/13/2024 naterra is positive 01/17/2025 materialized further positive at 4.82 CT scan chest abdomen pelvis done showed interval 12 mm solid-appearing lesion in the right lobe of liver and 6 mm left lateral periaortic lymph node and 7 mm left external iliac lymph node Patient have progression of cancer start chemotherapy with FOLFIRI plus bevacizumab Patient already have port catheter Next scan in 2 months after starting treatment CEA decreasing ORDERS: Order # Description [id number] CBC + Comprehensive Metabolic Panel + CEA [id number] Lab Appointment [id number] CBC + Comprehensive Metabolic Panel + CEA [id number] Lab Appointment [id number] CBC + Comprehensive Metabolic Panel + CEA [id number] Lab Appointment [id number] CBC + Comprehensive Metabolic Panel + CEA [id number] Lab Appointment [id number] CBC + Comprehensive Metabolic Panel + CEA [id number] Lab Appointment [id number] CBC + Comprehensive Metabolic Panel + CEA [id number] Lab Appointment [id number] CBC + Comprehensive Metabolic Panel + CEA [id number] Lab Appointment [id number] CBC + Comprehensive Metabolic Panel + CEA [id number] Lab Appointment [id number] CBC + Comprehensive Metabolic Panel + CEA [id number] Lab Appointment [id number] CBC + Comprehensive Metabolic Panel + CEA [id number] Lab Appointment RETURN TO CLINIC: I reviewed the diagnosis, prognosis, and recommended treatment/procedure options with the patient (and/or their legal personal service representative), including the potential benefits, risks, side effects and alternative therapies. We also discussed the option of no treatment and the possibility of clinical trial participation, if applicable. All questions were addressed, and they demonstrated understanding. They provided informed consent to proceed with the proposed plan of care. BILLING AND COMPLIANCE: I reviewed external records from providers outside my specialty as summarized above. I spent a total of 50 minutes on this patient?s care on the day of their visit excluding time spent related to any billed procedures. This time includes time spent with the patient as well as time spent documenting in the medical record, reviewing patients records and tests, obtaining history, placing orders, communicating with other healthcare professionals, counseling the patient, family or caregiver, and/or care coordination for the diagnoses above. Electronically Signed by: {Object.Sanct_ID*PnP.NameFL@M}, {Object.Sanct_ID*PnP.Suffix@U} D: {Object.Sanct_Date} T: {Object.Sanct_Time} CC: Conor?Evon,? PCP: Luke Phillips Referring: Luke Phillips This document was completed utilizing speech recognition software. Grammatical errors, random word insertions, pronoun errors, and incomplete sentences are an occasional consequence of this system due to software limitations, ambient noise, and hardware issues. Any formal questions or concerns about the content, text or information contained within the body of this dictation should be directly addressed to the provider for clarification.
== END 2025-04-21 23:59 | disposition home or self-care (01) ==
LOC: SCTC 09:53
PROVIDERS: PCP Family Medicine; Referring Provider Family Medicine; Visit Provider Internal Medicine Hematology & Oncology
DX: Z51.11 Encounter for antineoplastic chemotherapy (principal); C18.4 Malignant neoplasm of transverse colon; C78.7 Secondary malignant neoplasm of liver and intrahepatic bile duct; Z90.49 Acquired absence of other specified parts of digestive tract; Z90.89 Acquired absence of other organs
CPT/HCPCS: 36591; 80053; 81001; 82378; 85025; 96413; 99212; A4216; J1642; J3490; J7040; Q5126; G0463

== ENCOUNTER 2025-05-17 07:24 | Outpatient (RCR) | payer MEDICARE, BC, SELFPAY ==
[2025-04-24 09:18] LABS: Collection Type, Urine Voided; Squamous Epithelial Cell,Urine 0 /hpf (0-5)
[2025-04-24 09:29] LABS: Basophils # (Auto) 0.0 Thou/mm3 (0.0-0.2); Basophils % (Auto) 1 % (0-2.5); Eosinophils # (Auto) 0.1 Thou/mm3 (0.0-0.5); Eosinophils % (Auto) 2 % (0-10); Hematocrit 39.7 % (41.0-53.0); Hemoglobin 13.7 g/dL (13.5-16.0); Immature Granulocytes Auto 0.01 Thou/mm3 (0.00-0.00); Lymphocytes # (Auto) 0.9 Thou/mm3 (1.0-4.8); Lymphocytes % (Auto) 21 % (10-50); Mean Corpuscular HGB Conc 34.5 g/dl (31.0-37.0); Mean Corpuscular Hemoglobin 32.9 pg (25.0-35.0); Mean Corpuscular Volume 95 fL (80-100); Monocytes # (Auto) 0.4 Thou/mm3 (0.0-0.8); Monocytes % (Auto) 10 % (0-12); Neutrophils # (Auto) 2.8 Thou/mm3 (1.8-7.7); Neutrophils % (Auto) 66 % (37-80); Nucleated Red Blood Cell # 0.00 Thou/mm3 (0.00-0.00); Nucleated Red Blood Cell % 0 /100 WBC (0); Platelet Count 134 Thou/mm3 (140-440); RDW Standard Deviation 42.6 fL (35.1-43.9); Red Blood Count 4.17 Miln/mm3 (4.50-5.90); White Blood Count 4.2 Thou/mm3 (3.8-10.6)
[2025-04-24 09:47] LABS: Alanine Aminotransferase 11 U/L (10-49); Albumin, Serum 4.1 gm/dL (3.4-4.8); Albumin/Globulin Ratio 2.3 (1.2-2.2); Alkaline Phosphatase 71 U/L (46-116); Anion Gap 9 (7-16); Aspartate Amino Transferase 19 U/L (0-34); BUN/Creatinine Ratio 16 Ratio (12-20); Bilirubin,Total 0.5 mg/dL (0.3-1.2); Blood Urea Nitrogen 16 mg/dL (9-23); Calcium 9.0 mg/dL (8.3-10.6); Calcium (Corrected) 9.0 mg/dL (8.5-10.1); Carbon Dioxide 26.1 mMol/L (20.0-31.0); Carcinoembryonic Antigen 1.5 ng/mL (0.0-5.0); Chloride 106 mMol/L (98-107); Creatinine (Component) 1.0 mg/dL (0.6-1.3); Globulin 1.8 gm/dL (2.3-3.5); Glucose 156 mg/dL (74-106); Osmolality,Calculated 285 (275-295); Potassium 4.3 mMol/L (3.4-5.1); Sodium 141 mMol/L (136-145); Total Protein 5.9 gm/dL (5.7-8.2); eGFR > 60 See Note
[2025-04-24 09:51] LABS: Bacteria,Urine 4+; Bilirubin,Urine Negative (Negative); Blood,Urine Negative (Negative); Clarity,Urine Turbid (Clear/Hazy); Color,Urine Yellow (Lt Yel-Yel); Glucose, Urine Negative (Negative); Ketones,Urine Negative (Negative); Leukocyte Esterase,Urine Positive (Negative); Nitrite,Urine Positive (Negative); PH,Urine 5.5 (5.0-7.0); Protein,Urine Negative (Neg - Trace); RBC,Urine 3 /hpf (0-3); Specific Gravity,Urine 1.024 (1.001-1.035); Urobilinogen,Urine Negative mg/dL (0.0-1.0); WBC,Urine 145 /hpf (0-5)
[2025-05-16 08:57] LABS: Collection Type, Urine Voided
[2025-05-16 09:13] LABS: Basophils # (Auto) 0.0 Thou/mm3 (0.0-0.2); Basophils % (Auto) 1 % (0-2.5); Eosinophils # (Auto) 0.2 Thou/mm3 (0.0-0.5); Eosinophils % (Auto) 3 % (0-10); Hematocrit 39.2 % (41.0-53.0); Hemoglobin 14.0 g/dL (13.5-16.0); Immature Granulocytes Auto 0.03 Thou/mm3 (0.00-0.00); Lymphocytes # (Auto) 0.9 Thou/mm3 (1.0-4.8); Lymphocytes % (Auto) 16 % (10-50); Mean Corpuscular HGB Conc 35.7 g/dl (31.0-37.0); Mean Corpuscular Hemoglobin 34.1 pg (25.0-35.0); Mean Corpuscular Volume 95 fL (80-100); Monocytes # (Auto) 0.7 Thou/mm3 (0.0-0.8); Monocytes % (Auto) 11 % (0-12); Neutrophils # (Auto) 4.0 Thou/mm3 (1.8-7.7); Neutrophils % (Auto) 69 % (37-80); Nucleated Red Blood Cell # 0.00 Thou/mm3 (0.00-0.00); Nucleated Red Blood Cell % 0 /100 WBC (0); Platelet Count 120 Thou/mm3 (140-440); RDW Standard Deviation 52.6 fL (35.1-43.9); Red Blood Count 4.11 Miln/mm3 (4.50-5.90); White Blood Count 5.8 Thou/mm3 (3.8-10.6)
[2025-05-16 09:31] LABS: Alanine Aminotransferase 13 U/L (10-49); Albumin, Serum 4.4 gm/dL (3.4-4.8); Albumin/Globulin Ratio 2.1 (1.2-2.2); Anion Gap 10 (7-16); Aspartate Amino Transferase 19 U/L (0-34); BUN/Creatinine Ratio 21 Ratio (12-20); Bilirubin,Total 0.7 mg/dL (0.3-1.2); Blood Urea Nitrogen 19 mg/dL (9-23); Calcium 9.3 mg/dL (8.3-10.6); Calcium (Corrected) 9.3 mg/dL (8.5-10.1); Carbon Dioxide 25.5 mMol/L (20.0-31.0); Chloride 106 mMol/L (98-107); Creatinine (Component) 0.9 mg/dL (0.6-1.3); Globulin 2.1 gm/dL (2.3-3.5); Glucose 97 mg/dL (74-106); Osmolality,Calculated 283 (275-295); Potassium 4.2 mMol/L (3.4-5.1); Sodium 141 mMol/L (136-145); Total Protein 6.5 gm/dL (5.7-8.2); eGFR > 60 See Note
[2025-05-16 09:45] LABS: Alkaline Phosphatase 64 U/L (46-116)
[2025-05-16 10:04] LABS: Bacteria,Urine 3+; Bilirubin,Urine Negative (Negative); Blood,Urine Negative (Negative); Clarity,Urine Clear (Clear/Hazy); Color,Urine Lt-Yellow (Lt Yel-Yel); Glucose, Urine Negative (Negative); Ketones,Urine Negative (Negative); Leukocyte Esterase,Urine Positive (Negative); Nitrite,Urine Positive (Negative); PH,Urine 5.5 (5.0-7.0); Protein,Urine Negative (Neg - Trace); RBC,Urine 2 /hpf (0-3); Specific Gravity,Urine 1.018 (1.001-1.035); Squamous Epithelial Cell,Urine < 1 /hpf (0-5); Urobilinogen,Urine Negative mg/dL (0.0-1.0); WBC,Urine 38 /hpf (0-5)
[2025-05-16 12:48] LABS: Carcinoembryonic Antigen 1.7 ng/mL (0.0-5.0)
== END 2025-05-21 23:59 | disposition home or self-care (01) ==
LOC: SCTC 07:24
PROVIDERS: PCP Family Medicine; Referring Provider Family Medicine; Visit Provider Internal Medicine Hematology & Oncology
DX: Z51.11 Encounter for antineoplastic chemotherapy (principal); C18.4 Malignant neoplasm of transverse colon; C78.7 Secondary malignant neoplasm of liver and intrahepatic bile duct; Z90.49 Acquired absence of other specified parts of digestive tract; Z90.89 Acquired absence of other organs
CPT/HCPCS: 36591; 80053; 81001; 82378; 85025; 96413; A4216; J1642; J3490; J7040; Q5126

== ENCOUNTER 2025-06-07 08:53 | Outpatient (RCR) | payer MEDICARE, BC, SELFPAY ==
[2025-06-05 11:27] LABS: Collection Type, Urine Voided
[2025-06-05 11:40] LABS: Basophils # (Auto) 0.0 Thou/mm3 (0.0-0.2); Basophils % (Auto) 0 % (0-2.5); Eosinophils # (Auto) 0.1 Thou/mm3 (0.0-0.5); Eosinophils % (Auto) 1 % (0-10); Hematocrit 37.9 % (41.0-53.0); Hemoglobin 13.1 g/dL (13.5-16.0); Immature Granulocytes Auto 0.04 Thou/mm3 (0.00-0.00); Lymphocytes # (Auto) 0.9 Thou/mm3 (1.0-4.8); Lymphocytes % (Auto) 10 % (10-50); Mean Corpuscular HGB Conc 34.6 g/dl (31.0-37.0); Mean Corpuscular Hemoglobin 33.9 pg (25.0-35.0); Mean Corpuscular Volume 98 fL (80-100); Monocytes # (Auto) 0.8 Thou/mm3 (0.0-0.8); Monocytes % (Auto) 10 % (0-12); Neutrophils # (Auto) 7.0 Thou/mm3 (1.8-7.7); Neutrophils % (Auto) 80 % (37-80); Nucleated Red Blood Cell # 0.00 Thou/mm3 (0.00-0.00); Nucleated Red Blood Cell % 0 /100 WBC (0); Platelet Count 129 Thou/mm3 (140-440); RDW Standard Deviation 58.1 fL (35.1-43.9); Red Blood Count 3.87 Miln/mm3 (4.50-5.90); White Blood Count 8.8 Thou/mm3 (3.8-10.6)
[2025-06-05 11:59] LABS: Alanine Aminotransferase 10 U/L (10-49); Albumin, Serum 4.3 gm/dL (3.4-4.8); Albumin/Globulin Ratio 1.9 (1.2-2.2); Alkaline Phosphatase 64 U/L (46-116); Anion Gap 9 (7-16); Aspartate Amino Transferase < 8 U/L (0-34); BUN/Creatinine Ratio 18 Ratio (12-20); Bilirubin,Total 0.9 mg/dL (0.3-1.2); Blood Urea Nitrogen 16 mg/dL (9-23); Calcium 8.9 mg/dL (8.3-10.6); Calcium (Corrected) 8.9 mg/dL (8.5-10.1); Carbon Dioxide 25.7 mMol/L (20.0-31.0); Chloride 107 mMol/L (98-107); Creatinine (Component) 0.9 mg/dL (0.6-1.3); Globulin 2.3 gm/dL (2.3-3.5); Glucose 135 mg/dL (74-106); Osmolality,Calculated 286 (275-295); Potassium 3.7 mMol/L (3.4-5.1); Sodium 142 mMol/L (136-145); Total Protein 6.6 gm/dL (5.7-8.2); eGFR > 60 See Note
[2025-06-05 12:06] LABS: Bacteria,Urine 4+; Bilirubin,Urine Negative (Negative); Blood,Urine Negative (Negative); Glucose, Urine Trace (Negative); Ketones,Urine Negative (Negative); Leukocyte Esterase,Urine Positive (Negative); Nitrite,Urine Positive (Negative); PH,Urine 5.5 (5.0-7.0); Protein,Urine Trace (Neg - Trace); RBC,Urine 3 /hpf (0-3); Specific Gravity,Urine 1.026 (1.001-1.035); Squamous Epithelial Cell,Urine < 1 /hpf (0-5); Urobilinogen,Urine 2.0 mg/dL (0.0-1.0); WBC,Urine 53 /hpf (0-5)
[2025-06-05 12:21] LABS: Clarity,Urine Turbid (Clear/Hazy); Color,Urine Yellow (Lt Yel-Yel)
[2025-06-05 12:42] LABS: Carcinoembryonic Antigen 1.3 ng/mL (0.0-5.0)
--- NOTE | 2025-06-26 02:33 | CTCFLWUP_ITS ---
Patient: KRAIG MAYO : 1955 Page 8 of 10 FOLLOW UP NOTE DATE OF SERVICE: 06/06/2025 NAME: KRAIG MAYO ACCOUNT: [id number] : 1955 AGE: 70 INTERVAL HISTORY: Summary --patient did not want to do the 5-FU pump and was started on capecitabine and bevacizumab instead of planned FOLFIRI and bevacizumab. Patient since starting treatment with capecitabine has been doing well. Patient was started on capecitabine 1500 mg twice daily for 14 days and 1 week off. P atient receives bevacizumab in the clinic. Patient's CEA as well as Carlee results show great response to treatment. Will order imaging. ONCOLOGY HISTORY: DIAGNOSIS: Malignant neoplasm of transverse colon [ICD10] C18.4 DATE OF DIAGNOSIS: 07/16/2023 STAGE/TNM: Stage IV colon cancer with liver mets s/p colectomy and metastatic colectomy of the liver lesions TREATMENT HISTORY: Care?Plan Start?Date Cycle Day Intent mFOLFOX-6?+?Bevacizumab?5?mg/kg 09/07/2023 1 14 Palliative FOLFIRI?+?Bevacizumab?5mg/kg 02/20/2025 1 14 Palliative capecitabine?and?avastin 03/14/2025 1 21 Palliative HISTORY OF PRESENT ILLNESS: Kraig Mayo is a 70-year-old ENG speaking male with history of hypertension has the following oncology history. 07/14/2023: Hemoglobin 6.6, MCV 65, WBC 11.6, ANC 9.0, platelets 522,000. Mr. Mayo was having restless leg syndrome as well as weakness and fatigue. 07/16/2023: Mr. Mayo had EGD and colonoscopy? 07/16/2023: CT scan of the abdomen and pelvis with IV contrast 08/13/2023: PET/CT scan? 07/17/2023: Mr. Mayo had exploratory laparotomy, right colectomy and eventual liver biopsy 09/07/2023: Mr. Mayo is started on modified FOLFOX 6 and bevacizumab. 09/10/2023: MRI of the abdomen with and without IV contrast 12/15/2023: Mr. Mayo received a dose of modified FOLFOX 6+ bevacizumab. 12/19/2023: PET/CT scan 02/24/2024: Mr. Mayo had fL cycle of modified FOLFOX 6 with bevacizumab. 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 Tobacco?Pack?per?Day:?0 MEDICATIONS: 1. capecitabine - 150 mg 2 tab twice a day 2. capecitabine - 500 mg 3 tab twice a day 3. Compazine - 10 mg 10 mg three times a day prn nausea 4. ferrous sulfate - 324 mg 1 tab Daily 5. pravastatin - 40 mg 1 tab Daily 6. ramipriL - 10 mg 1 Capsule Daily 7. Zofran - 8 mg 8 mg three times a day prn nausea Medications Last Reconciled by Jackie Lund MA on 06/06/2025 ALLERGIES: No Known Allergies REVIEW OF SYSTEMS: A complete 14-point review of systems was performed and is negative except as noted in interval history. PHYSICAL EXAMINATION: VITAL SIGNS: Temperature?99.3, B/P?138/86, Oxygen?Saturation?97% Weight?164?lbs (Change?since?06/05/25:?-0.6?lbs) PAIN: 0 - No pain ECOG Performance Status: None GENERAL APPEARANCE: Appears well, in no apparent distress, appropriately interactive. HEENT: Normocephalic, no temporal wasting, normal conjunctiva, no scleral icterus, normal hearing, lips without lesions, neck normal range of motion. CARDIOVASCULAR: Not assessed. PULMONARY: Normal respiratory effort, no respiratory distress or use of accessory muscles, speaking in full sentences, no tachypnea. EXTREMITIES: No pedal edema or cyanosis. SKIN: Normal skin appearance. NEUROLOGIC: Alert and oriented x4. PSHYCHIATRIC: Appropriate affect, mood normal, behavior normal, intact thought and speech. LABORATORY DATA: I have personally reviewed and interpreted each of the patient?s relevant lab tests, abnormal findings are below: Date 05/16/25 06/05/25 ??WHITE?BLOOD?COUNT?(Thou/mm3) 5.8 8.8 ??RED?BLOOD?COUNT?(Miln/mm3) 4.11?L 3.87?L ??HEMOGLOBIN?(gm/dl) 14.0 13.1?L ??HEMATOCRIT?(%) 39.2?L 37.9?L ??PLATELET?COUNT?(Thou/mm3) 120?L 129?L ??NEUTROPHILS?%,?AUTO?(%) 69 80 ??LYMPH?%,?AUTO?(%) 16 10 ??NEUTROPHILS,?AUTO?(Thou/mm3) 4.0 7.0 ??GLUCOSE,RANDOM?(mg/dL) ? 135?H ??BLOOD?UREA?NITROGEN?(mg/dL) ? 16 ??CREATININE?(mg/dL) ? 0.90 ??SODIUM?(mmol/L) ? 142 ??POTASSIUM?(mmol/L) ? 3.7 ??CHLORIDE?(mmol/L) ? 107 ??CrCl?(CandG)?(ml/min) ? 80.65 ??AST/SGOT?(Unit/L) ? <?8 ??ALT/SGPT?(Unit/L) ? 10 ??ALKALINE?PHOSPHATASE?(Unit/L) ? 64 ??BILIRUBIN,?TOTAL?(mg/dL) ? 0.9 ??PROTEIN?TOTAL?(gm/dl) ? 6.6 ??ALBUMIN,?SERUM?(gm/dl) ? 4.3 ??GLOBULIN?(gm/dl) ? 2.3 ??ALBUMIN/GLOBULIN?RATIO ? 1.9 ??CALCIUM,?SERUM?(mg/dL) ? 8.9 ??CALCIUM?SERUM?(CORRECTED)?(mg/dL) ? 8.9 ??CEA?(O*)?(ng/ml) ? 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 Mayo had 12 cycles of modified FOLFOX 6+ bevacizumab on 02/24/2024. He has an appointment for repeat MRI scan on March 15, [address] [facility] scan (12/19/2023) showed significant decrease in the size of the hepatic metastatic disease. His energy levels have significantly improved. Kras is wild type Patient completed for hepatic metastasectomy at [facility].. PET CT scan 07/28/2024 negative for any cancer Naterra testing is negative on 08/13/2024 CBC CMP CEA 10/13/2024 naterra is positive 01/17/2025 materialized further positive at 4.82 CT scan chest abdomen pelvis done showed interval 12 mm solid-appearing lesion in the right lobe of liver and 6 mm left lateral periaortic lymph node and 7 mm left external iliac lymph node I will continue patient on chemo chemotherapy with capecitabine in bevacizumab Patient is very worried being on treatment during the new and [place]. Advised patient to skip chemotherapy for 2 weeks and resume in the new year Will continue to monitor Continue chemotherapy ORDERS: Order # Description [id number] CT Scan + Chest + Abdomen + With W/O Contrast [id number] CBC + Comprehensive Metabolic Panel + CEA [id number] Lab Appointment [id number] CBC + Comprehensive Metabolic Panel + CEA [id number] Lab Appointment [id number] CBC + Comprehensive Metabolic Panel + CEA [id number] Lab Appointment [id number] CBC + Comprehensive Metabolic Panel + CEA [id number] Lab Appointment [id number] CBC + Comprehensive Metabolic Panel + CEA [id number] Lab Appointment [id number] CBC + Comprehensive Metabolic Panel + CEA [id number] Lab Appointment [id number] CBC + Comprehensive Metabolic Panel + CEA [id number] Lab Appointment RETURN TO CLINIC: I reviewed the diagnosis, prognosis, and recommended treatment/procedure options with the patient (and/or their legal volunteer patient representative), including the potential benefits, risks, side effects and alternative therapies. We also discussed the option of no treatment and the possibility of clinical trial participation, if applicable. All questions were addressed, and they demonstrated understanding. They provided informed consent to proceed with the proposed plan of care. BILLING AND COMPLIANCE: I reviewed external records from providers outside my specialty as summarized above. I spent a total of 50 minutes on this patient?s care on the day of their visit excluding time spent related to any billed procedures. This time includes time spent with the patient as well as time spent documenting in the medical record, reviewing patients records and tests, obtaining history, placing orders, communicating with other healthcare professionals, counseling the patient, family or caregiver, and/or care coordination for the diagnoses above. Electronically Signed by: {Object.Sanct_ID*PnP.NameFL@M}, {Object.Sanct_ID*PnP.Suffix@U} D: {Object.Sanct_Date} T: {Object.Sanct_Time} CC: Conor?Evon,? PCP: Luke Phillips Referring: Luke Phillips This document was completed utilizing speech recognition software. Grammatical errors, random word insertions, pronoun errors, and incomplete sentences are an occasional consequence of this system due to software limitations, ambient noise, and hardware issues. Any formal questions or concerns about the content, text or information contained within the body of this dictation should be directly addressed to the provider for clarification.
== END 2025-06-21 23:59 | disposition home or self-care (01) ==
LOC: SCTC 08:53
PROVIDERS: PCP Family Medicine; Referring Provider Family Medicine; Visit Provider Internal Medicine Hematology & Oncology
DX: Z51.11 Encounter for antineoplastic chemotherapy (principal); C18.4 Malignant neoplasm of transverse colon; C78.7 Secondary malignant neoplasm of liver and intrahepatic bile duct; Z90.49 Acquired absence of other specified parts of digestive tract
CPT/HCPCS: 36591; 80053; 81001; 82378; 85025; 96413; 99212; A4216; J1642; J3490; Q5126; G0463